=== PATIENT | female | born 1980 | race Caucasian/White ===

== ENCOUNTER → 2016-06-26 | Outpatient (CLI) | payer MEDICAID ==
[2016-06-26 10:06] LABS: CH 29.4; CHCM 32.7; HCT 33.4 % (34.0-46.0); HDW 2.42; HGB 10.8 gm/dL (11.4-16.0); MCH 29.3 pg (25.0-35.0); MCHC 32.4 g/dL (31.0-37.0); MCV 90.2 fL (80.0-100.0); Mean Platelet Volume 6.9; RDW 12.9 % (11.5-15.5); WBC 4.9 k/uL (3.8-10.6)
== END | disposition home or self-care (01) ==
LOC: LABWHC1 08:44
PROVIDERS: ATTEND Obstetrics & Gynecology
DX: Z34.92 Encounter for supervision of normal pregnancy, unspecified, second trimester (principal); Z3A.00 Weeks of gestation of pregnancy not specified
CPT/HCPCS: 36415; 82950; 85027

== ENCOUNTER → 2016-09-10 | Outpatient (CLI) | payer MEDICAID ==
--- NOTE | 2016-09-10 09:59 | US ---
EXAMINATION TYPE: US OB anatomy transabd DATE OF EXAM: 09/10/2016 9:29 AM COMPARISON: 2017 HISTORY: Large for date 3rd Trimester O36.63XO TECHNIQUE: Transabdominal (TA) EXAM MEASUREMENTS: GESTATIONAL AGE / DATING Physician Established: (35 weeks/0 days) EDC: 10/11/2016/ Dates by LMP: (35 weeks/0 days) EDC: 10/11/2016 Dates by First Scan: (35 weeks/0 days) EDC: 10/11/2016 Dates by Current Scan for: (35 weeks/4 days) EDC: 10/11/2016 SURVEY IUP: Single PLACENTA: Fundal PREVIA: No previa TIM: 18 cm Normal CERVICAL LENGTH (transabdominal: norm > 3.0cm): 4.6 cm BIOMETRY PRESENTATION: Vertex LIE: Longitudinal BPD: 8.8 cm 35 weeks / 4 days HC: 31.4 cm 35 weeks / 2 days AC: 29.8 cm 33 weeks / 6 days FL: 6.8 cm 35 weeks / 0 days ESTIMATED WEIGHT IN GRAMS: 2427 grams ESTIMATED WEIGHT IN LBS/OZS: 5 lbs. 6 oz. WEIGHT PERCENTAGE BASED ON ESTABLISHED DATE: 20 % HC/AC: 1.1 FL/AC: 23 HEART RATE: 130 bpm RHYTHM: Normal ANATOMY SEEN (within normal limits): * Lateral Vent (< 1 cm) 0.9 cm * Cerebellum (varies with age) 3.5 cm Choroid Plexus (bilateral) Midline Falx Cavus Septi Pellucidi Four Chamber Heart Outflow tracts: LVOT/RVOT Stomach Situs Nose / Lips Diaphragm Kidneys (bilateral) Bladder Cord Insert Three Vessel Cord Longitudinal Spine Transverse Spine Arms (bilateral) Legs (bilateral) ANATOMY NOT SEEN: * Cisterna Magna (< 1.1 cm) cm * Nuchal Fold (< 0.6 cm) cm viable IUP, age approrpiate IMPRESSION: Single viable uterine .
== END | disposition home or self-care (01) ==
LOC: RADUSWWP 08:44
PROVIDERS: ATTEND Obstetrics & Gynecology
DX: O36.63X0 Maternal care for excessive fetal growth, third trimester, not applicable or unspecified (principal); Z3A.35 35 weeks gestation of pregnancy
CPT/HCPCS: 76811

== ENCOUNTER 2016-10-14 01:50 | Inpatient (IN) | payer MEDICAID ==
[2016-10-14 02:21] VITALS: BMI 27.2
[2016-10-14] MEDS ORDERED: OXYTOCIN 10 UNIT/ML 1 ML VIAL IM PRN (02:56)
[2016-10-14] MEDS ORDERED: CARBOPROST TROMETHAMINE 250 MCG/ML 1 ML AMP IM PRN (02:56)
[2016-10-14] MEDS ORDERED: LIDOCAINE 1% (PF) 10 MG/ML (30 ML SDV) SQ PRN (02:56)
[2016-10-14] MEDS ORDERED: METHYLERGONOVINE 0.2 MG/ML 1 ML AMP IM PRN (02:56)
[2016-10-14] MEDS ORDERED: TERBUTALINE 1 MG/ML VIAL SQ PRN (02:56)
[2016-10-14] MEDS ORDERED: LACTATED RINGERS 1,000 ML IV SCH (03:00)
[2016-10-14] MEDS ORDERED: OXYTOCIN 20 UNITS/1000 ML NS 1,000 ML IV SCH ×2 (03:00→10:00)
[2016-10-14 03:08] LABS: Basophils % (A) 0 %; CH 30.7; CHCM 34.8; Eosinophils # (A) 0.1 k/uL (0-0.7); Eosinophils % (A) 1 %; HCT 34.2 % (34.0-46.0); HDW 2.54; HGB 11.8 gm/dL (11.4-16.0); Luc # (Auto) 0.14; Luc % (Auto) 2; Lymphocytes # (A) 1.9 k/uL (1.0-4.8); Lymphocytes % (A) 28 %; MCH 30.5 pg (25.0-35.0); MCHC 34.4 g/dL (31.0-37.0); MCV 88.6 fL (80.0-100.0); Mean Platelet Volume 6.8; Monocytes # (A) 0.5 k/uL (0-1.0); Monocytes % (A) 8 %; Neutrophils % (A) 60 %; RBC 3.86 m/uL (3.80-5.40); RDW 13.4 % (11.5-15.5); WBC 6.7 k/uL (3.8-10.6)
[2016-10-14] MEDS ORDERED: HYDROCORTISONE 2.5% RECTAL CREAM 30 GM TUBE RECTAL PRN (09:48)
[2016-10-14] MEDS ORDERED: Acetaminophen-Codeine 300-30mg TAB PO PRN ×2 (09:48)
[2016-10-14] MEDS ORDERED: LANOLIN CREAM 5 GM TUBE TOPICAL PRN (09:48)
[2016-10-14] MEDS ORDERED: BENZOCAINE/MENTHOL SPRAY 1 GM/SPRAY AEROSOL TOPICAL PRN (09:48)
[2016-10-14] MEDS ORDERED: WITCH HAZEL 1 EACH MED..PAD TOPICAL PRN (09:48)
[2016-10-14] MEDS ORDERED: SIMETHICONE 80 MG CHEWABLE PO PRN (09:48)
[2016-10-14] MEDS ORDERED: diphenhydrAMINE 50 MG CAP PO PRN (09:48)
[2016-10-14] MEDS ORDERED: diphenhydrAMINE 50 MG/ML 1 ML VIAL IVP PRN ×2 (09:48)
[2016-10-14] MEDS ORDERED: diphenhydrAMINE 25 MG CAP PO PRN (09:48)
[2016-10-14] MEDS ORDERED: ZOLPIDEM 5 MG TAB PO PRN (09:48)
[2016-10-14] MEDS ORDERED: ACETAMINOPHEN TAB 325 MG TAB PO PRN (09:48)
[2016-10-14] MEDS: IBUPROFEN 600 MG TAB PO PRN ×2 (12:16→22:13)
[2016-10-14] MEDS: SENNOSIDES-DOCUSATE SODIUM 1 EACH TAB PO SCH (19:40)
[2016-10-15] MEDS: SENNOSIDES-DOCUSATE SODIUM 1 EACH TAB PO SCH (08:10)
[2016-10-15 08:19] VITALS: BP 106/65; PULSE 65; RESP 16; TEMP 97.6
--- NOTE | 2016-10-16 08:27 | P.HPOB ---
History of Present Illness H&P Date: 10/14/16 Chief Complaint: Labor 36-year-old presents at 40 weeks and 3 days in active labor. Her cervix did make some change in triage. She is hue irregularly. heart tones 140-145 with moderate variability and reactive. Review of Systems All systems: negative Constitutional: Denies chills, Denies fever Eyes: denies blurred vision, denies pain Ears, nose, mouth and throat: Denies headache, Denies sore throat Cardiovascular: Denies chest pain, Denies shortness of breath Respiratory: Denies cough Gastrointestinal: Denies abdominal pain, Denies diarrhea, Denies nausea, Denies vomiting Genitourinary: Denies dysuria, Denies hematuria Musculoskeletal: Denies myalgias Integumentary: Denies pruritus, Denies rash Neurological: Denies numbness, Denies weakness Psychiatric: Denies anxiety, Denies depression Endocrine: Denies fatigue, Denies weight change Past Medical History Past Medical History: No Reported History History of Any Multi-Drug Resistant Organisms: None Reported Past Surgical History: No Surgical Hx Reported Past Anesthesia/Blood Transfusion Reactions: No Reported Reaction Past Psychological History: No Psychological Hx Reported Smoking Status: Never smoker - Past Family History Father Family Medical History: Diabetes Mellitus Medications and Allergies Home Medications Medication Instructions Recorded Confirmed Type Iron 1 tab PO DAILY 03/02/15 03/02/15 History Pnv with Ca,No.72/Iron/FA 1 tab PO DAILY 03/02/15 03/02/15 History [ Plus Tablet] Allergies Allergy/AdvReac Type Severity Reaction Status Date / Time No Known Allergies Allergy Verified 03/02/15 01:11 Exam Osteopathic Statement: *. No significant issues noted on an osteopathic structural exam other than those noted in the History and Physical/Consult. Heart: Regular rate and rhythm Lungs: Clear to auscultation bilaterally Abdomen: Soft, nontender Extremities: Negative Homans sign Results Result Diagrams: 10/14/16 02:50 Assessment and Plan (1) Normal labor Status: Acute Plan: 1. Expectant management 2. Anticipate normal vaginal delivery
--- NOTE | 2016-10-16 08:29 | P.PROBDLV ---
Vaginal Delivery Note - . Vaginal Delivery Note: 36-year-old presented at 40 weeks and 3 days in labor. She did need Pitocin augmentation to regulate her contractions. She slowly progressed to 4- 5 cm and asked for something for pain but with her history of apnea with Stadol in the past I wasn't comfortable giving her anything. At this point she progressed to complete within an hour, pushed, and delivered a viable female infant over intact perineum. Head delivered OA, anterior shoulder delivered gentle downward traction followed by posterior shoulder and rest of body. Nose and mouth bulb suctioned, cord clamped and cut, infant placed mother's abdomen. Apgars 9, 9. Placenta delivered spontaneously, intact with three-vessel cord. Vagina, cervix, perineum inspected. A superior periurethral laceration was repaired with 3-0 Vicryl. Estimated blood loss 200 mL. Other and baby in stable condition.
--- NOTE | 2016-10-16 08:30 | P.DS ---
Providers Date of admission: 10/14/16 01:50 Expected date of discharge: 10/15/16 Attending physician: Chelsea Aleman Primary care physician: Stated None - Discharge Diagnosis(es) (1) Normal labor Status: Resolved (2) Normal vaginal delivery Status: Acute Hospital Course: Patient was admitted in active labor. She underwent normal vaginal delivery. Her course was uncomplicated. She'll be discharged home day #1 in stable condition to follow-up with me in 6 weeks. Plan - Discharge Summary Discharge Medication List Iron 1 tab PO DAILY 03/02/15 [History] Pnv with Ca,No.72/Iron/FA [ Plus Tablet] 1 tab PO DAILY 03/02/15 [ History] Follow up Appointment(s)/Referral(s): Chelsea Aleman DO [Doctor of Osteopathic Medicine] - 6 Weeks Discharge Disposition: HOME SELF-CARE
== END 2016-10-15 13:03 | disposition home or self-care (01) | DRG 775 ==
LOC: 4FBP 01:50
PROVIDERS: ADMIT Obstetrics & Gynecology; ATTEND Obstetrics & Gynecology
PROC: 10E0XZZ Delivery of Products of Conception, External Approach (ICD-10-PCS; principal; 2016-10-14)
PROC: 0UQMXZZ Repair Vulva, External Approach (ICD-10-PCS; 2016-10-14)
DX: O48.0 Post-term pregnancy (principal); O71.82 Other specified trauma to perineum and vulva; Z3A.40 40 weeks gestation of pregnancy; Z37.0 Single live birth
CPT/HCPCS: 85025; 88307